=== PATIENT | female | born 1960 | race American Indian/Alaskan Native ===

== ENCOUNTER 2017-09-29 10:55 | Emergency (ER) | payer OTHER ==
[2017-09-29 11:59] VITALS: BP 189/71
[2017-09-29 13:07] LABS: Bilirubin,Urine NEG (Negative); Blood,Urine NEG (Negative); Color,Urine Yellow (Yellow); Mucus,Urine FEW /HPF; Nitrite,Urine NEG (Negative); Protein,Urine <15 mg/dL mg/dL (Negative); Urobilinogen,Urine < 2.0 mg/dL (<2.0); WBC,Urine < 1.0 /HPF (0.0-6.0)
[2017-09-29 13:39] LABS: Basophils % (Auto) 0.3 % (0.0-1.8); Eosinophils # (Auto) 0.1 K/mm3 (0.0-0.4); Eosinophils % (Auto) 1.2 % (0.0-4.3); Hematocrit 34.2 % (30.3-42.9); Hemoglobin 11.7 gm/dl (10.1-14.3); Lymphocytes # (Auto) 2.5 K/mm3 (1.2-5.4); Lymphocytes % (Auto) 37.2 % (13.4-35.0); Mean Corpuscular HGB Conc 34 % (30-34); Mean Corpuscular Hemoglobin 27 pg (28-32); Mean Corpuscular Volume 77 fl (79-97); Monocytes # (Auto) 0.4 K/mm3 (0.0-0.8); Monocytes % (Auto) 5.5 % (0.0-7.3); Platelet Count 236 K/mm3 (140-440); Red Blood Count 4.42 M/mm3 (3.65-5.03)
[2017-09-29 13:52] LABS: BUN/Creatinine Ratio 23; Blood Urea Nitrogen 14 mg/dL (7-17); Calcium 9.3 mg/dL (8.4-10.2); Hemolysis Index 2
== END 2017-09-29 20:49 | disposition left against medical advice (07) ==
LOC: ED 10:55
DX: R07.81 Pleurodynia (principal); Z53.21 Procedure and treatment not carried out due to patient leaving prior to being seen by health care provider
CPT/HCPCS: 36415; 80048; 81001; 84484; 85025; 93005; 93010

== ENCOUNTER 2018-04-24 12:46 | Outpatient (CLI) | payer OTHER ==
--- NOTE | 2018-04-24 14:05 | XRay Report ---
XRAYCERVICAL SPINE 2 VIEWS: 04/24/18 12:46:00 CLINICAL: Myelopathy concurrent with and due to to spinal stenosis. FINDINGS: Status post anterior fusion C3-C5. Normal appearance of the anterior plate and screws. Normal vertebral body alignment through T1. Decreased height of the C6 vertebral body. Large anterior osteophytes at C5-6 and C6-7. Disc spaces are preserved. Increased density of all of the facets but minimal facet joint disease. Normal soft tissues. IMPRESSION: Status post anterior cervical fusion C3-C5. Spondylosis at C5-6 and C6-7.
== END 2018-04-24 12:47 | disposition home or self-care (01) ==
LOC: SPVIMAG 12:46
PROVIDERS: ATTEND Neurological Surgery
DX: M47.892 Other spondylosis, cervical region (principal); M19.90 Unspecified osteoarthritis, unspecified site; I10 Essential (primary) hypertension; Z98.1 Arthrodesis status; Z87.891 Personal history of nicotine dependence; Z88.6 Allergy status to analgesic agent
CPT/HCPCS: 72040